=== PATIENT | female | born 1995 | race Hispanic/Latino ===

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

== ENCOUNTER 2017-02-06 00:58 | Emergency (ER) | payer OTHER ==
[2017-02-06 01:01] VITALS: BP 130/81; PULSE 110; RESP 16; O2SAT 99
--- NOTE | 2017-02-06 01:07 | ED.REPORT ---
HPI-General Illness Date of Service Feb 06, 2017 ED Provider: Dr. Mast 21 y/o female () with no pertinent hx presents to the ED complaining of left sided stabbing chest pain, onset 2 days ago. Her pain is not modified by any specific activity, including taking a deep breath. Associated sx include pain with palpation, tightness in her throat and tingling in face and arms bilaterally. She denies any trauma to the chest, pain upon exertion, nausea, vomiting, cough, fever, abdominal pain and lower extremity edema. The pt took Tylenol with no relief. She is not currently . Nursing Notes Stated Complaint: CHEST PAIN, THROAT TINGLING, NUMBNESS IN FACE Chief Complaint: Chest Pain Nursing Notes Reviewed: Yes Allergies: Coded Allergies: No Known Allergies (Verified Allergy, Unknown, 09/13/16) Scheduled PRN Ibuprofen (Ibuprofen) 600 Mg Tablet 600 MG PO TID PRN PRN For Pain General Time Seen by MD: 01:07 Chief Complaint Chest pain Hx Obtained From: Patient Arrived By: Walk-in Sudden in Onset?: Yes Onset Occurred: 2 days ago Symptom Duration: Since onset Location: : Chest Quality: Stabbing Radiation: : Does not radiate Severity: Current: Mild Severity: Maximum: Mild Recent Healthcare: No recent doctor visit Similar Sx Previous: No Past Medical History Past Medical History Healthy Past Surgical History None reported Smoking History Never Smoker Social History Alcohol Use: Denies alcohol use Other Social History: Good social support Ambulatory Status Independent Review of Systems Reports: tightness in the throat Reports: tingling in arms bilaterally and face Full Review of Systems Constitutional: Denies: Fever Respiratory: Denies: Non-productive cough Cardiovascular: Reports: Chest pain (left sided), Denies: Edema GI: Denies: Abdominal pain, Nausea, Vomiting Complete sys rev & neg: except as marked. Physical Exam Vital Signs Vital Signs Date Time Temp Pulse Resp B/P Pulse Ox O2 Delivery O2 Flow Rate FiO2 02/06/17 01:01 36.6 110 16 130/81 99 Initial VS: Reviewed Head / Eyes: Atraumatic, Normocephalic ENT: Mucous membranes moist, Conjunctiva normal, No scleral icterus Neck: Supple, Non-tender, Full range of motion Abdomen / GI: Soft, Non-tender Extremities: Vascular intact, Neuro intact, No swelling, No tenderness Skin: Warm, Dry, No cyanosis Neurologic: Alert, Oriented, Nonfocal General/Constitutional: Awake, Alert, No acute distress, Cooperative Respiratory / Chest: Atraumatic, Breath sounds NL, Breath sounds = bilat, No respiratory distress, No rales, No rhonchi, No wheezing, No retractions Left upper chest tenderness. Chest pain reproducible with palpation. Cardiovascular: Regular rhythm, Heart sounds NL, No gallop, No murmurs, No rubs Heart Rate / Rhythm: Positive: Tachycardia Interpretation & Diagnostics ECG Interpretation ECG Interpretation: Sinus tachycardia. Rate 110. Borderline T abnormalities diffuse leads. Time: 01:11 Interpreted by: ED physician X-Ray Chest Interpretation Chest Xray Interpretation: Result: Normal View: Portable, AP & lat Interpretation / Wet Read by: Wet read ED physician Re-Eval/Medical Decision Med Decision/Clinical Course 21-year-old presents with low-grade chest pain in the left upper chest elicitable by palpation. She is responding to this with obvious hyperventilation and tingling and numbness in face and hands. No indication of cardiac disease on EKG and no indication of other pathology on chest x-ray. Discharged in stable condition. Ibuprofen for discomfort. Follow up with PCP in the office. Source of Hx: Old records Time of Eval: 01:20 Re-Evaluation/Progress Note: Discussed imaging results, diagnosis and plan to discharge. Pt understands and agrees with the plan. F/U instructions and RTER warning given. All questions addressed. Counseled Regarding: Diagnosis, Need for follow-up, When/why to return to ED Discharge & Departure Primary Impression: Non-cardiac chest pain Additional Impression: Hyperventilation Disposition: Home Discharge Condition All VS Reviewed: Yes Condition: Stable Patient Instructions: Costochondritis (ED) Additional Instructions: The tingling in your hands and face is from hyperventilation. It is not dangerous. It is merely the result of overbreathing because of pain or stress. The pain in your chest is not cardiac. Your chest x-ray is normal. Your EKG is unremarkable. The fact that it is inducible by palpation on your chest strongly supports that it is in the muscles and tissue of the chest wall. Follow-up with your doctor in the office. Ibuprofen as needed for pain. Return if she becomes short of breath, or have any other new symptoms of concern. Referrals: Morena Michael MD (PCP) Scribe Attestation Portions of this note were transcribed by Matthew Doshi. I, , personally performed the history, physical exam and medical decision- making;I reviewed and confirmed the accuracy of the information in the transcribed note. Signed by Madi Sky. 02/06/17 02:45 Andrés Mast MD Feb 06, 2017 01:07 Matthew Doshi Feb 06, 2017 02:07
[2017-02-06] MEDS ORDERED: IBUP-1827 PO (02:28)
--- NOTE | 2017-02-06 10:03 | DRSVH ---
PROCEDURE: X-RAY CHEST, TWO VIEWS ([id number]) INDICATIONS: left upper chest pain 3 DAYS TECHNIQUE: 2 views of the chest were acquired. COMPARISON: None. FINDINGS: Surgical changes and devices: None. Lungs and pleura: No pleural effusions or pneumothorax. Lungs are clear. Mediastinum: Mediastinal contours are normal. Heart size is normal. Bones and chest wall: No suspicious bony abnormalities. Soft tissues appear unremarkable. IMPRESSION: Normal examination. Dictated by: Luis Mendoza M.D. on 02/06/2017 at 10:01 Approved by: Luis Mendoza M.D. on 02/06/2017 at 10:01
== END 2017-02-06 02:40 | disposition home or self-care (01) ==
LOC: SED 00:58
DX: R07.89 Other chest pain (principal); R06.4 Hyperventilation